=== PATIENT | female | born 1990 ===

== ENCOUNTER 2018-08-30 15:42 | Emergency (ER) | payer OTHER ==
[2018-08-30 16:04] VITALS: O2SAT 98
[2018-08-30] MEDS ORDERED: Albuterol 0.083% Inhal Sol (2.5 mg/3 mL) UD IH STA (16:22)
[2018-08-30 16:45] VITALS: BP 167/97; PULSE 65; RESP 16; TEMP 98.5
[2018-08-30] MEDS ORDERED: Albuterol 0.083% Inhal Sol (2.5 mg/3 mL) UD ONE (16:46)
--- NOTE | 2018-08-30 16:57 | C.PDOC ---
History Of Present Illness 28 year old female presents to the ED for evaluation of non-productive cough, pleuritic chest pain, runny nose, sore throat and chest tightness for the past 4 days (contrary to triage). Patient has history of bronchitis, and states she sometimes receives albuterol and prednisone from her PMD. Patient denies nausea, vomiting, diarrhea, dysuria, and abdominal pain. Time Seen by Provider: 08/30/18 16:06 Chief Complaint (Nursing): Cough, Cold, Congestion History Per: Patient History/Exam Limitations: no limitations Onset/Duration Of Symptoms: Days (4) Current Symptoms Are (Timing): Still Present Associated Symptoms: Sore Throat, Cough. denies: Sputum Additional History Per: Patient Past Medical History Reviewed: Historical Data, Nursing Documentation, Vital Signs Vital Signs: Last Vital Signs Temp 98.5 F 08/30/18 16:42 Pulse 65 08/30/18 16:42 Resp 16 08/30/18 16:42 BP 167/97 H 08/30/18 16:42 Pulse Ox 98 08/30/18 16:42 - Medical History PMH: HTN Surgical History: No Surg Hx Family History: States: Unknown Family Hx - Social History Hx Alcohol Use: Yes Hx Substance Use: No - Immunization History Hx Tetanus Toxoid Vaccination: No Hx Influenza Vaccination: No Hx Pneumococcal Vaccination: No Review Of Systems ENT: Positive for: Nose Congestion, Throat Pain Cardiovascular: Positive for: Other (pleuritic chest pain ) Respiratory: Positive for: Cough. Negative for: Sputum Gastrointestinal: Negative for: Nausea, Vomiting, Abdominal Pain, Diarrhea Genitourinary: Negative for: Dysuria Physical Exam - Physical Exam Appears: Non-toxic, No Acute Distress Skin: Normal Color, Warm, Dry Head: Atraumatic, Normacephalic Eye(s): bilateral: Normal Inspection Ear(s): Bilateral: Normal Nose: Normal, No Discharge Oral Mucosa: Moist Throat: Normal, No Erythema, No Exudate Neck: Supple Chest: Symmetrical, No Deformity, No Tenderness Cardiovascular: Rhythm Regular, No Murmur Respiratory: No Rales, No Rhonchi, Wheezing (scant, expiratory ), Other (speaking in full sentences, occasional cough noted ) Extremity: Normal ROM, Capillary Refill (less than 2 seconds ) Neurological/Psych: Oriented x3, Normal Speech, Normal Cognition ED Course And Treatment O2 Sat by Pulse Oximetry: 98 Pulse Ox Interpretation: Normal Progress Note: CXR ordered and reviewed. Albuterol INH given. On reassessment, patient is resting comfortably, showing no signs of distress and is stable for discharge. Patient is advised to f/u with PMD within 1-2 days for further evaluation. Advised to return to the ED if symptoms persist or worsen. Disposition Counseled Patient/Family Regarding: Studies Performed, Diagnosis, Need For Followup, Rx Given - Disposition Referrals: [facility] [Outside] Disposition: HOME/ ROUTINE Disposition Time: 17:00 Condition: STABLE Additional Instructions: FOLLOW UP WITH YOUR DOCTOR/CLINIC IN 1-2 DAYS USE MEDICATIONS DIRECTED RETURN TO ER IF SYMPTOMS WORSEN Prescriptions: Albuterol HFA [Ventolin HFA 90 mcg/actuation (8 g)] 0.09 mg IH Q4 PRN #1 puff PRN Reason: Wheezing Benzonatate [Tessalon Perles] 100 mg PO BID PRN #15 sgl PRN Reason: Cough predniSONE [predniSONE Tab] 40 mg PO DAILY #6 tab Instructions: Viral Syndrome (DC), Upper Respiratory Infection (ED) Forms: [employer] (Armenian) Print Language: MARSHALLESE - Clinical Impression Clinical Impression: Bronchospasm, Viral disease, Upper respiratory infection - Scribe Statement The provider has reviewed the documentation as recorded by the Scribe (Bonnie Reed) Provider Attestation: All medical record entries made by the Scribe were at my direction and personally dictated by me. I have reviewed the chart and agree that the record accurately reflects my personal performance of the history, physical exam, medical decision making, and the department course for this patient. I have also personally directed, reviewed, and agree with the discharge instructions and disposition.
--- NOTE | 2018-08-30 20:59 | RAD ---
Date of service: 08/30/2018 HISTORY: cough, sob COMPARISON: No prior. TECHNIQUE: Chest PA and lateral FINDINGS: LUNGS: No active pulmonary disease. PLEURA: No significant pleural effusion identified. No pneumothorax apparent. CARDIOVASCULAR: No aortic atherosclerotic calcification present. Normal cardiac size. No pulmonary vascular congestion. OSSEOUS STRUCTURES: No significant abnormalities. VISUALIZED UPPER ABDOMEN: Normal. OTHER FINDINGS: None. IMPRESSION: No active disease.
== END 2018-08-30 17:19 | disposition home or self-care (01) ==
LOC: C.ER 15:42
DX: J98.01 Acute bronchospasm (principal); J06.9 Acute upper respiratory infection, unspecified; B34.9 Viral infection, unspecified